=== PATIENT | female | born 1975 | race Caucasian/White ===

== ENCOUNTER 2018-11-17 17:25 | Inpatient (IN) | payer BC ==
[~2018-11-17] VITALS: Ht 157.5 cm; Wt 113.9 kg
[~2018-11-17 17:25] MED LIST: IBUPROFEN 800800 M1 PO; NORCO 5-325 TA1 EACH PO; PERCOCET PO
[2018-11-17 17:29] VITALS: BP 213/127
[2018-11-17] MEDS ORDERED: FLONASE 0.05%50 MCG NASAL (17:36)
[2018-11-17] MEDS ORDERED: SINGULAIR 10 MG10 M1 PO (17:36)
[2018-11-17] MEDS ORDERED: COMBIVENT INH (17:36)
[2018-11-17] MEDS ORDERED: ALBUTEROL2.5 MG/31 INH (17:37)
[2018-11-17 18:46] LABS: ABSOLUTE BASOPHILS 0.1 thou/uL (0.0-0.2); ABSOLUTE EOSINOPHILS 0.1 thou/uL (0.0-0.7); ABSOLUTE LYMPHOCYTES 2.4 thou/uL (0.8-5.3); ABSOLUTE MONOCYTES 0.5 thou/uL (0.0-1.2); ABSOLUTE NEUTROPHILS 5.7 thou/uL (1.6-8.1); BASOPHILS 0.8 %; EOSINOPHILS 0.7 %; HEMATOCRIT 41.8 % (37.0-47.0); LYMPHOCYTES 27.5 %; MCH 29.2 pg (26.0-34.0); MCHC 33.6 g/dL (28.0-37.0); MCV 86.8 fL (80.0-100.0); MONOCYTES 5.6 %; MPV 8.8 fl. (7.2-11.1); NUCLEATED RBCS 0 /100WBC; PLATELET COUNT* 272 thou/uL (150-400); POLYS 65.4 %; RBC 4.81 mil/uL (4.20-5.00); WBC 8.7 thou/uL (4.0-11.0)
[2018-11-17 18:56] LABS: BE -1.9 mmol/L (-2 to +3); PCO2 21.2 mmHg (35.0-45.0); pH 7.548 (7.340-7.450)
[2018-11-17 18:56] LABS: ANION GAP 12 mmol/L (7-16); BUN 22 mg/dL (7-18); CHLORIDE 105 mmol/L (98-107); CO2 22 mmol/L (21-32); CREATININE 1.1 mg/dL (0.6-1.3); GLUCOSE 110 mg/dL (70-99); POTASSIUM 3.4 mmol/L (3.5-5.1); SODIUM 139 mmol/L (136-145)
[2018-11-17 19:01] LABS: PO2 124.1 mmHg (75.0-100.0)
[2018-11-17 19:10] LABS: ALBUMIN 3.9 g/dL (3.4-5.0); ALKALINE PHOSPHATASE 101 U/L (46-116); SGOT 18 U/L (15-37); SGPT 25 U/L (30-65); TOTAL BILIRUBIN 0.5 mg/dL (<0.1-1.0); TOTAL PROTEIN 7.7 g/dL (6.4-8.2); TROPONIN-I LEVEL <0.06 ng/mL (<0.06)
[2018-11-17 21:26] LABS: BE -4.2 mmol/L (-2 to +3); PCO2 26.2 mmHg (35.0-45.0); PO2 61.1 mmHg (75.0-100.0); pH 7.456 (7.340-7.450)
[2018-11-17 21:33] VITALS: BP 177/95
[2018-11-17 21:48] LABS: INFLUENZA A ANTIGEN None Detected (None Detect); INFLUENZA B ANTIGEN None Detected (None Detect)
[2018-11-17] MEDS ORDERED: EXCEDRIN MIGRA1 EAC1 PO (22:07)
[2018-11-17 22:30] VITALS: BP 161/82
[2018-11-18] VITALS: BP 156/86
[2018-11-18 04:00] VITALS: BP 191/89
[2018-11-18 05:29] LABS: HEMATOCRIT 41.4 % (37.0-47.0); HEMOGLOBIN 13.9 gm/dL (12.0-15.0); MCH 29.3 pg (26.0-34.0); MCHC 33.7 g/dL (28.0-37.0); MCV 87.1 fL (80.0-100.0); MPV 9.4 fl. (7.2-11.1); RBC 4.75 mil/uL (4.20-5.00); RDW-CV 14.2 % (10.5-14.5); WBC 8.7 thou/uL (4.0-11.0)
--- NOTE | 2018-11-18 05:30 | NUR ---
RECEIVED REPORT FROM ED RN. PT TRANSFERRED TO 227. PT A&OX4. VSS. PHYSICAL ASSESSMENT COMPLETED AND CHARTED. PT ON O2 AT 2L NC WITH 96% O2 SAT. PT TRACING ST/PVC ON TELE. PT UP WITH 1 ASSIST TO RESTROOM. PT C/O OF MIGRAINE- DR KINSEY INFORMED WITH NEW ORDER. CALL LIGHT WITHIN REACH.
[2018-11-18 05:47] LABS: ALBUMIN 3.6 g/dL (3.4-5.0); CALCIUM 8.4 mg/dL (8.5-10.1); POTASSIUM 3.5 mmol/L (3.5-5.1); TOTAL BILIRUBIN 0.3 mg/dL (<0.1-1.0); TOTAL PROTEIN 7.5 g/dL (6.4-8.2)
[2018-11-18 08:09] VITALS: BP 190/80
--- NOTE | 2018-11-18 09:03 | EKG ---
[place] [address] ELECTROCARDIOGRAM REPORT Name: MICKEYLEO MCKEON Room: [place] [address] ADM IN ..#: [id number] Admission: 11/17/18 Attend Phys: Viet Avalos MD Discharge: Date of : 77 Report #: [id number] THIS REPORT FOR: //name// [facility] ED Test Date: 2018-11-17 Test Time: 18:20:12 Pat Name: ELO AREVALO Department: Room: [facility] Gender: F Corrections Counselor: Emeka SOSA : 1975 Requested By: Lu Miles Order Number: [id number] MD: Vishal Jarvis Measurements Intervals [place] Rate: 128 P: 63 NJ: 146 QRS: 85 QRSD: 84 T: 0 QT: 311 QTc: 454 Interpretive Statements Sinus tachycardia Probable left atrial enlargement Baseline wander in lead(s) V4,V5 No previous ECG available for comparison Electronically Signed On 11-18-2018 9:02:58 [employer] WORKER by Vishal Jarvis [email or web address] <ELECTRONICALLY SIGNED> By: Vishal Jarvis MD, [facility] [id number] Vishal Jarvis MD, [facility] /EPI
--- NOTE | 2018-11-18 10:32 | NUR ---
MET WITH PT AND HER FRIEND/ABDIEL TO DISCUSS HOME SITUATION/DC PLANNING. PT LIVES WITH SPOUSE AND CHILDREN. 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 USES NEBULIZER AND INHALERS, HAS HX OF ASTHMA SINCE AGE 13. PT STATES 'I NEVER WHEEZE AND MY BP ISN'T THAT HIGH EVEN DURING AN ASTHMA ATTACK' PT VOICING FRUSTRATION BEING HOSPITALIZED AND ISSUES SURROUNDING HER DX. SUPPORT OFFERED, REASSURED HER THAT DR WOULD BE IN SOON TO DISCUSS. PT DENIES NEEDS AT THIS TIME. WILL FOLLOW
[2018-11-18 12:00] VITALS: BP 150/98
--- NOTE | 2018-11-18 15:00 | 2DMMODE ---
[place] [address] 2 D/M-MODE ECHOCARDIOGRAM Name: MICKEYELO Room: [facility]1 ADM IN [facility]#: [id number] Admission: 11/17/18 Attend Phys: Viet Avalos, Discharge: Date of : 77 Date of Service: 11/18/18 1500 Report #: [id number] THIS REPORT FOR: //name// APPROVED REPORT Study performed: 11/18/2018 14:14:13 EXAM: Comprehensive 2D, Doppler, and color-flow Echocardiogram Patient Location: In-Patient Room #: [facility] Status: routine BSA: 2.08 HR: 104 bpm BP: 172/89 mmHg Rhythm: NSR Other Information Study Quality: Good Indications Dyspnea Hypertension/HDD 2D Dimensions IVSd: 12.09 (7-11mm) LVOT Diam: 21.42 (18-24mm) LVDd: 38.52 mm PWd: 11.10 (7-11mm) Ascending Ao: 28.90 (22-36mm) LVDs: 23.25 (25-40mm) Aortic Root: 34.20 mm Volumes Left Atrial Volume (Systole) LA ESV Index: 23.00 mL/m2 Aortic Valve AoV Peak Luis Alberto.: 1.38 m/s AO Peak Gr.: 7.56 mmHg LVOT Max P.71 mmHg AO Mean Gr.: 4.21 mmHg LVOT Mean P.26 mmHg LVOT Max V: 1.09 m/s AO V2 VTI: 24.37 cm LVOT Mean V: 0.69 m/s MUSTAPHA (VTI): 3.20 cm2 LVOT V1 VTI: 21.61 cm Mitral Valve E/A Ratio: 0.71 MV Decel. Time: 74.50 ms MV E Max Luis Alberto.: 0.70 m/[place] [address] 2 D/M-MODE ECHOCARDIOGRAM Name: HERIBERTO AREVALORA Rodriguez Room: [address] IN [facility].#: [id number] Admission: 11/17/18 Attend Phys: Viet Avalos, Discharge: Date of : 77 Date of Service: 11/18/18 1500 Report #: [id number] MV PHT: 21.61 ms MVA (PHT): 10.18 cm2 TDI E/Lateral E': 7.78 E/Medial E': 7.00 Medial E' Luis Alberto.: 0.10 m/s Lateral E' Luis Alberto.: 0.09 m/s Pulmonary Valve PV Peak Luis Alberto.: 1.22 m/s PV Peak Gr.: 5.98 mmHg Left Ventricle The left ventricle is normal size. There is normal LV segmental wall motion. Mild concentric left ventricular hypertrophy. Left ventricular systolic function is normal. The left ventricular ejection fraction is within the normal range. LVEF is 60-65%. Right Ventricle The right ventricle is normal size. The right ventricular systolic function is normal. Atria The left atrium size is normal. The right atrium size is normal. Aortic Valve The aortic valve is normal in structure. No aortic regurgitation is present. There is no aortic valvular stenosis. Mitral Valve The mitral valve is normal in structure. There is no mitral valve regurgitation noted. No evidence of mitral valve stenosis. Tricuspid Valve The tricuspid valve is normal in structure. Unable to assess PA pressure. Trace tricuspid regurgitation. Pulmonic Valve The pulmonary valve is normal in structure. There is no pulmonic valvular regurgitation[place] [address] 2 D/M-MODE ECHOCARDIOGRAM Name: HERIBERTO AREVALORA Rodriguez Room: [address] IN .R.#: [id number] Admission: 11/17/18 Attend Phys: Viet Avalos, Discharge: Date of : 77 Date of Service: 11/18/[address] [facility] Report #: [id number] The aortic root is normal in size. IVC is normal in size and collapses >50% with inspiration. Pericardium There is no pericardial effusion. <Conclusion> The left ventricle is normal size. Mild concentric left ventricular hypertrophy. Left ventricular systolic function is normal. The left ventricular ejection fraction is within the normal range. LVEF is 60-65%. The right ventricle is normal size. The left atrium size is normal. The aortic valve is normal in structure. The mitral valve is normal in structure. The tricuspid valve is normal in structure. IVC is normal in size and collapses >50% with inspiration. There is no pericardial effusion. There is normal LV segmental wall motion. <ELECTRONICALLY SIGNED> By: Eric Bello MD, FACC 11/18/18 1500 1500 1500 Eric Bello MD, FACC /INF
[2018-11-18 16:00] VITALS: BP 150/110
--- NOTE | 2018-11-18 17:37 | NUR ---
ASSUMED PT CARE AT 0730, FULL ASSESMENT DONE CHARTED. PT VERY DROWSY THIS AM, C/O FEELING LIKE HER HANDS, FEET AND FACE ARE TINGLING, PT STATES SHE STARTED FEELING BETTER LATE MORNING, PT THINKS THE MEDICINE SHE HAD IN ER MADE HER FEEL THIS WAY, HYDRALAZINE WAS ADDED TO ALLERGY LIST. PT C/O MIGRAINE, MEDS GIVEN PER DEC. PT UP AD DAVID, ST ON THE MONITOR. BP ELEVATED BUT RESPONDING TO NEW MEDS THIS AFTERNOON. REVIEWED PLAN OF CARE WITH PT, QUESTIONS ANSWERED. WILL CONTINUE WITH PLAN OF CARE
[2018-11-18 19:15] VITALS: BP 152/78
--- NOTE | 2018-11-18 23:47 | NUR ---
PT ASSESSMENT COMPLETE, REFER TO COMPUTER CHARTING FOR FURTHER DETAILS. PT C/O HEADACHE, SINUS PRESSURE, AND JOINT PAIN. PRN TRAMADOL AND PERCOCET GIVEN. NEW ORDERS FOR CLARITIN D RECEIVED. IVF INFUSING ORDERED. PT YOSHI ANY CP, OR SOA AT REST. PT ALSO DENIES N/V AND HAS NOT YET HAD ANY STOOL THIS SHIFT. VSS. TRACING SR ON MONITOR. HOURLY ROUNDING FOR SAFETY, CLWR.
--- NOTE | 2018-11-18 23:50 | NUR ---
PT ASSESSMENT COMPLETE, REFER TO COMPUTER CHARTING FOR FURTHER DETAIL. TRACING ST ON MONITOR. PT DENIES ANY PAIN, CP, N/V/D. PT IS ON ROOM AIR WITHOUT ANY S/S OF DISTRESS. FAMILY AT BEDSIDE VISITING. VSS. HOURLY ROUNDING FOR SAFETY, CLWR
[2018-11-19] VITALS (7 sets, daily range): BP systolic 128–190; BP diastolic 60–100
[2018-11-19 04:47] LABS: HEMATOCRIT 40.1 % (37.0-47.0); MCH 28.5 pg (26.0-34.0); MCHC 32.4 g/dL (28.0-37.0); MPV 9.3 fl. (7.2-11.1); RBC 4.56 mil/uL (4.20-5.00); RDW-CV 15.1 % (10.5-14.5); WBC 17.5 thou/uL (4.0-11.0)
[2018-11-19 05:19] LABS: CALCIUM 8.8 mg/dL (8.5-10.1); CREATININE 1.1 mg/dL (0.6-1.3); MAGNESIUM 1.9 mg/dL (1.8-2.4); POTASSIUM 3.9 mmol/L (3.5-5.1)
--- NOTE | 2018-11-19 06:13 | NUR ---
PT HAS BEEN UP FOR MOST OF THIS SHIFT. PT WOULD HAVE "COUGHING FITS" AFTER BREATHING TX. VSS. TRACING ST ON MONITOR. HOURLY ROUNDING FOR SAFETY. CLWR.
[2018-11-19] MEDS ORDERED: RESTORIL15 M1 PO (12:42)
[2018-11-19] MEDS ORDERED: DIGOXIN250 MCG PO (12:44)
--- NOTE | 2018-11-19 12:46 | CON ---
[address] [address] CONSULTATION Name: ELO AREVALO Jennifer Room: [place] [address] ADM IN M.R.#: [id number] Admission: 11/17/18 Attend Phys: Viet Avalos MD Discharge: Date of : 77 Report #: [id number] THIS REPORT FOR: //name// CC: Viet Haskins REQUESTING PHYSICIAN: Liss Vicente MD REASON FOR CONSULTATION: Cough, history of asthma. DISCUSSION: The patient is a 43-year-old nonsmoking woman who has a history of asthma dating back to when she was 13. She notes she was having recurrent episodes of "croup," diagnosis of asthma was made at that time. Cold air and smoke were her main triggers. She had actually done relatively well as far as her asthma is concerned. When she would have issues, was manifested primarily as a cough. She does have a LOT OF MEDICATION INTOLERANCES. She has not seen a calculus tutor previously. At the time of her diagnosis, she did have a battery of allergy testing done and no allergens were found at that time, which did trigger problems. She is actually and relatively well being managed on daily montelukast. Also, has a nebulizer at home with albuterol. Also, Combivent inhaler. She has not had any hospitalizations for her asthma. She has had several ED visits in the past. She has not had any ENT evaluations. About 3 weeks ago, she noted with the onset of the cold weather, she started having trouble. Again is primarily a cough. Really not bring up any sputum. Has not felt necessarily full in her sinuses. Minimal postnasal drip. She does not have any reflux type symptoms. She did see a nurse practitioner in her family physician's office. Was given a short course of steroids, by her description was a Medrol Mike. It did help, but did not alleviate her symptoms completely. She did call back. They had not wanted to prescribe additional steroids. On her own, she did make an appointment, saw Dr. Hill, the altitude chamber technician, yesterday. Apparently, however, he was concerned with the way she looked, sent her to the Emergency Department. Was noted also that she was fairly hypertensive. There was mention that she had a low O2 level as well; however, I do not see where that was actually documented, what it was in his office. She was seen in the Emergency Department. Did have a chest x-ray done, which was negative for any acute findings. O2 saturations were adequate. She did have blood gases done. Given her symptoms, she was admitted. Has been started on IV steroids and is receiving DuoNeb q.i.d. She is feeling a little better today. She is still having a fair amount of what she calls chest tightness. No actual pain. Not having any fevers at home. No problems with lower extremity edema. She has no prior history of thromboembolic disease. As far as other medications she used to try to control her asthma in the past, though has not been on much else. She notes at one point, she was given Symbicort. It gave [facility] [address] [place] [address] CONSULTATION Name: ELO AREVALO Room: [address] IN M.R.#: [id number] Admission: 11/17/18 Attend Phys: Viet Avalos MD Discharge: Date of : 77 Report #: [id number] her "out of body experience." Dr. Haskins had her stop that. She does not believe that she has ever been on any straight inhaled steroids in the past. She does not get a flu shot. PAST MEDICAL HISTORY: Remarkable for osteogenesis imperfecta. Her mother has had as well. She has had some fractures, are related to that in the past. Questionable history of hypertension. Apparently does tend to have higher pressures when she is in her physician's office. However, is not on any regular medications. At home, she actually becomes hypotensive. She has had prior closed right ankle surgery, has had some falls and injuries in the past. HOME MEDICATIONS: Have been the montelukast as noted, Combivent, fluticasone nasal spray, albuterol nebulizer (she notes she is out of that at this time). SOCIAL HISTORY: She is . 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 She is a lifelong nonsmoker. Her father did smoke, though he left home when she was 7. FAMILY HISTORY: Positive for asthma in her mother and another relative. Her mother has osteogenesis imperfecta as well. No history of thromboembolic disease. No other lung problems in her family. REVIEW OF SYSTEMS: A 12-point ROS was done. Note positives above. She denies any dysphagia, indigestion, heartburn. No difficulty swallowing. Not having lot of fullness in her upper airway. She does have a dry cough. Friend noted in the room. At times, the pitch of her voice will change when she is having more trouble with her asthma. Has the chest tightness as noted. She has not had any nausea, vomiting, diarrhea. No lower extremity edema. No recent falls. No syncopal episodes. No palpitations. She does note she may have untoward reactions with medications. PHYSICAL EXAMINATION: APPEARANCE: An obese woman. Resting in bed. Has O2 running via nasal cannula. She is alert, cooperative, able to speak in full sentences. Does have a fairly frequent harsh cough. No sputum was expectorated. HEENT: Head is normocephalic. Sclerae nonicteric. Mucous membranes are moist. NECK: Negative for adenopathy. No JVD noted. HEART: Regular rate, though tachycardic. No S3 is heard. Currently, is 124 beats per minute. LUNGS: Reveal breath sounds to be diminished. Appears to have somewhat prolonged expiratory phase. She is not taking a full deep breath as it does trigger a cough. No wheezing is heard. Excursion is equal. No subcutaneous emphysema is noted. ABDOMEN: Obese, but soft. Does not appear to have any hepatosplenomegaly noted. EXTREMITIES: Negative for edema. She has no clubbing. Scant varicosities are noted. No calf tenderness. She has no clubbing. [place] [address] CONSULTATION Name: ELO AREVALO Jennifer Room: [address] IN [facility]#: [id number] Admission: 11/17/18 Attend Phys: Viet Avalos MD Discharge: Date of : 77 Report #: [id number] LABORATORY AND X-RAY FINDINGS: She had a portable chest film done in the ED. It was negative for any acute findings. Arterial blood gases were done. Her initial blood gas, she had a pH of 7.55, pCO2 of 21, pO2 of 124, bicarbonate of 18 with a saturation of 98%. Follow up blood gases, pH 7.46, pCO2 of 26, pO2 of 61, bicarbonate of 18. On her chemistry, bicarbonate was 22 and repeat was 21, BUN of 15, creatinine of 1.0, potassium is 3.5. Glucose elevated this morning to 206. Transaminases normal. Lactic acid was 1.2. White blood cell count 8700, hemoglobin 13.9, hematocrit of 41.4. Eosinophils were not elevated. Influenza screen was negative. IMPRESSION: 1. Complaints of increasing shortness of breath and cough for the last 3 weeks. By history, she has a cough variant asthma. Still having a lot of issues. 2. Mild metabolic acidosis. This could be from her asthma as well. 3. Mild hypoxemia. Does have an elevated based on her blood gases. 4. Obesity. 5. History of osteogenesis imperfecta. It is not clear if that may be having a role in the issues that she is having. RECOMMENDATIONS: 1. Continue with IV steroids. 2. Increase her neb treatments to every 4 hours around the clock. 3. Continue montelukast while she is here. 4. Agree with CT scan of her sinuses, which has already been requested. 5. We will also obtain a CT scan of her chest as well with contrast. Rule out PE given the mild hypoxemia, metabolic acidosis and chest pressure that she has. Also look for evidence of any tracheobronchomalacia. 6. May also empirically need to be on a PPI to cover for reflux if that is contributor to her cough. 7. She is hesitant to take any additional or new medications given the problem she has had in the past. However, probably would be reasonable to try a straight inhaled steroid at the time she is discharged to try and improve control of her asthma in addition to the montelukast. 8. Given the length of time it has been since she had allergy testing done, when she is stable, reassessing with a formal allergy testing may be worthwhile as well. <ELECTRONICALLY SIGNED> By: Govind Oconnell MD 11/19/18 1246 [id number] [id number] Youssef MD /nt
[2018-11-19] MEDS ORDERED: MEDROLDOSEPACK PO (12:49)
--- NOTE | 2018-11-19 17:29 | NUR ---
PT PROGRESSING TOWARDS GOALS THIS SHIFT. STOPPED TELEMETRY. PT MAINTAINING OXYGEN SATURATION ON RA. BLOOD PRESSURE MANAGED WITH PRESCRIBED MEDICATIONS. NO OTHER CONCERNS AT THIS TIME. CLWR. WCTM.
--- NOTE | 2018-11-19 20:00 | NUR ---
RECEIVED REPORT AND ASSUMED CARE OF PT, ASSESSMENT COMPLETED. PT SOB WITH TALKING OR ACTIVITY. 96% ON RA. BP TAKEN MANUALLY PER PT REQUEST, ELEVATED AT 150/100. WILL CONT TO MONITOR AND ASSIST NEEDED.
[2018-11-20 04:00] VITALS: BP 160/78
--- NOTE | 2018-11-20 05:55 | NUR ---
SLEPT WELL. BP IMPROVED AFTER CLONIDINE GIVEN. CONT TO BE SOB WITH ACTIVITY. ASSESSMENT UNCHANGED. HS GOALS OF REST AND SAFETY ACHIEVED. HOURLY ROUNDING OBSERVED.
[2018-11-20 07:54] VITALS: BP 158/98
[2018-11-20 16:00] VITALS: BP 180/98
--- NOTE | 2018-11-20 19:23 | NUR ---
PT AMBULATED HALLS WELL. DR TALLEY TO START NEW BP MEDS TONIGHT. TREAT ELEVATED BP WITH CLONODINE 0.1MG PO. PT STATES SHE IS READY FOR DISCHARGE IN THE AM.
[2018-11-20 20:00] VITALS: BP 150/90
[2018-11-21] VITALS: BP 144/90
[2018-11-21 05:29] LABS: HEMATOCRIT 39.6 % (37.0-47.0); HEMOGLOBIN 13.1 gm/dL (12.0-15.0); MCH 28.9 pg (26.0-34.0); MCHC 33.1 g/dL (28.0-37.0); MCV 87.5 fL (80.0-100.0); MPV 9.3 fl. (7.2-11.1); RBC 4.53 mil/uL (4.20-5.00); RDW-CV 15.1 % (10.5-14.5); WBC 12.3 thou/uL (4.0-11.0)
[2018-11-21 06:23] LABS: CREATININE 0.9 mg/dL (0.6-1.3); MAGNESIUM 2.4 mg/dL (1.8-2.4); POTASSIUM 3.7 mmol/L (3.5-5.1)
--- NOTE | 2018-11-21 06:44 | NUR ---
ASSUMED CARE OF PT AFTER REPORT AT 1930. PT A&OX4. VSS. PHYSICAL ASSESSMENT COMPLETED AND CHARTED. PT ON RA WITH 96% O2 SAT. PT ON MEDSURG STATUS. PT DENIES ANY PAIN OR DISCOMFORT. PT RESTED WELL ON BED. CALL LIGHT WITHNI REACH.BED IN LOW POSITION.
[2018-11-21 08:00] VITALS: BP 160/80
--- NOTE | 2018-11-21 12:03 | NUR ---
ASSUMED PT CARE AT 0730, FULL ASSESMENT DONE CHARTED. PT A/O X4, DENIES PAIN, M/S STATUS, VSS, 98% RA, NON PRODUCTIVE COUGH. PT HOPING TO GO HOME TODAY. DISCUSSED PRIMARY DR'S WITH PT, SHE IS WANTING TO CHANGE DR. PT UP AD DAVID, USES CALL LIGHT APPROPRIALTY. WILL CONTINUE TO MONITOR.
--- NOTE | 2018-11-21 16:33 | NUR ---
PT TRANSFERRED TO UNIT. PT ALERT AND ORIENTED. ON ROOM AIR. BLOOD SUGAR TAKEN 211. PT UP AD DAVID. BLOOD PRESSURE TAKEN MANUALLY, 175/100, HEART RATE 97. IV LT AC SALINE LOCKED. FALL RISK PRECAUTIONS IN PLACE. HOURLY ROUNDING COMPLETED. WILL CONTINUE TO MONITOR. DR. PEARSON NOTIFIED OF HIGH BLOOD PRESSURE.
--- NOTE | 2018-11-21 17:21 | NUR ---
PT REMAINED ALERT AND ORIENTED. PT BLOOD PRESSURE WAS ELEVATE AT 175/100, DR. PEARSON NOTIFIED. CLONIDINE GIVEN ORDERED TO LOWER BLOOD PRESSURE. PT REFUSED ANY INSULIN. FALL RISK PRECAUTIONS IN PLACE. HOURLY ROUNDING COMPLETED. WILL CONTINUE TO MONITOR.
[2018-11-21 20:00] VITALS: BP 170/90
[2018-11-22 04:55] LABS: CALCIUM 9.2 mg/dL (8.5-10.1); POTASSIUM 3.6 mmol/L (3.5-5.1)
[2018-11-22 06:30] VITALS: BP 160/90
--- NOTE | 2018-11-22 06:53 | NUR ---
PATIENT HAS RESTED WELL THROUGHOUT THE NIGHT. PATIENT VSS, ALTHOUGH BP STILL ELEVATED. PATIENT STATED THAT SHE DID NOT WANT ANYMORE CLONIDINE FOR HER BLOOD PRESSURE AND SHE HAS AN ALLERGY TO HYDRALAZINE. PATIENT STATES THAT THE CLONIDINE MAKES HER VERY SLEEPY AND SHE FEELS FUNNY. NO C/O PAIN. PATIENT RESTING IN BED THIS AM. PATIENT INSTRUCTED TO USE CALL LIGHT WHEN NEEDING ASSISTANCE. HOURLY ROUNDS MADE. WILL CONTINUE WITH PLAN OF CARE AND NURSING TO MONITOR.
[2018-11-22 08:00] VITALS: BP 129/61
[2018-11-22] MEDS ORDERED: CHLORTHALIDONE25 MG PO (11:12)
[2018-11-22] MEDS ORDERED: ALBUTEROL2.5 MG/31 INH (11:12)
[2018-11-22] MEDS ORDERED: COZAAR 50 MG TA50 M1 PO (11:12)
[2018-11-22] MEDS ORDERED: COMBIVENT INH (11:13)
[2018-11-22] MEDS ORDERED: PEPCID20 MG PO (11:14)
[2018-11-22] MEDS ORDERED: PREDNISONE 10 M10 MG PO (11:15)
--- NOTE | 2018-11-22 11:17 | NUR ---
PT REFUSES CHLORTHALIDONE. STATES IT MAKES HER DIZZY AND TIRED
[2018-11-22 11:21] VITALS: BP 129/61
[2018-11-22] MEDS ORDERED: CEFDINIR300 MG PO (11:26)
== END 2018-11-22 12:37 | disposition home or self-care (01) | DRG 189 ==
LOC: M.ERS 17:25 → M.2W 20:33 → M.TBA-ER 20:33 → M.2W 21:34 → M.ORTHSURG 11-21 16:21
PROVIDERS: Family Medicine; Internal Medicine; Nurse Practitioner Family; ADMIT Internal Medicine
DX: J96.01 Acute respiratory failure with hypoxia (principal); J45.41 Moderate persistent asthma with (acute) exacerbation; Z68.42 Body mass index [BMI] 45.0-49.9, adult; E87.2 Acidosis; I16.1 Hypertensive emergency; Q78.0 Osteogenesis imperfecta; I10 Essential (primary) hypertension; G43.909 Migraine, unspecified, not intractable, without status migrainosus; E66.9 Obesity, unspecified; R73.9 Hyperglycemia, unspecified; T38.0X5A Adverse effect of glucocorticoids and synthetic analogues, initial encounter; Y92.89 Other specified places as the place of occurrence of the external cause; Z79.51 Long term (current) use of inhaled steroids; Z79.82 Long term (current) use of aspirin; Z79.899 Other long term (current) drug therapy; Z88.8 Allergy status to other drugs, medicaments and biological substances; Z82.5 Family history of asthma and other chronic lower respiratory diseases

== ENCOUNTER 2021-10-04 20:30 | Inpatient (IN) | payer BC ==
[~2021-10-04] VITALS: Ht 157.5 cm; Wt 99.8 kg
[~2021-10-04 20:30] MED LIST changes: +ALBUTEROL2.5 MG/31 INH; +CEFDINIR300 MG PO; +CHLORTHALIDONE25 MG PO; +COMBIVENT INH; +COZAAR 50 MG TA50 M1 PO; +DIGOXIN250 MCG PO; +EXCEDRIN MIGRA1 EAC1 PO; +FLONASE 0.05%50 MCG NASAL; +MEDROLDOSEPACK PO; +PEPCID20 MG PO; +PREDNISONE 10 M10 MG PO; +RESTORIL15 M1 PO; +SINGULAIR 10 MG10 M1 PO
[2021-10-04 21:00] VITALS: BP 152/96
[2021-10-04 21:39] LABS: INFLUENZA A ANTIGEN Negative (Negative); INFLUENZA B ANTIGEN Negative (Negative)
[2021-10-04 22:45] LABS: HEMATOCRIT 40.6 % (37.0-47.0); MCH 29.6 pg (26.0-34.0); MCHC 34.4 g/dL (28.0-37.0); MPV 9.1 fl. (7.2-11.1); NUCLEATED RBCS 0 /100WBC; PLATELET COUNT* 189 thou/uL (150-400); RBC 4.72 mil/uL (4.20-5.00); RDW-CV 14.2 % (10.5-14.5); WBC 4.5 thou/uL (4.0-11.0)
[2021-10-04 22:46] LABS: CALCIUM 8.3 mg/dL (8.5-10.1); CREATININE 1.1 mg/dL (0.6-1.3); POTASSIUM 3.2 mmol/L (3.5-5.1)
[2021-10-04 22:50] LABS: ALBUMIN 3.6 g/dL (3.4-5.0); TOTAL BILIRUBIN 0.6 mg/dL (<0.1-1.0); TOTAL PROTEIN 7.8 g/dL (6.4-8.2)
[2021-10-04 23:49] LABS: ABSOLUTE LYMPHOCYTES 0.6 thou/uL (0.8-5.3); ABSOLUTE MONOCYTES 0.2 thou/uL (0.0-1.2); ABSOLUTE NEUTROPHILS 3.6 thou/uL (1.6-8.1); PLATELET ESTIMATE ADEQUATE
[2021-10-04 23:54] LABS: BE 1.5 mmol/L (-2 to +3); PCO2 34.2 mmHg (35.0-45.0); PO2 78.7 mmHg (75.0-100.0); pH 7.475 (7.340-7.450)
[2021-10-05 03:30] VITALS: BP 128/86
[2021-10-05 08:29] VITALS: BP 126/80
[2021-10-05 11:40] LABS: ABSOLUTE LYMPHOCYTES 0.7 thou/uL (0.8-5.3); MPV 8.6 fl. (7.2-11.1); NUCLEATED RBCS 0 /100WBC; RDW-CV 13.7 % (10.5-14.5)
[2021-10-05 11:42] LABS: ABSOLUTE MONOCYTES 0.2 thou/uL (0.0-1.2); BASOPHILS 0.2 %; HEMATOCRIT 41.1 % (37.0-47.0); HEMOGLOBIN 13.7 gm/dL (12.0-15.0); LYMPHOCYTES 23.5 %; MCH 28.9 pg (26.0-34.0); MCHC 33.3 g/dL (28.0-37.0); MCV 86.6 fL (80.0-100.0); MONOCYTES 6.1 %; PLATELET COUNT* 168 thou/uL (150-400); POLYS 70.2 %; RBC 4.74 mil/uL (4.20-5.00); WBC 2.9 thou/uL (4.0-11.0)
[2021-10-05 11:45] LABS: ALBUMIN 3.1 g/dL (3.4-5.0); CREATININE 0.8 mg/dL (0.6-1.3); MAGNESIUM 2.5 mg/dL (1.8-2.4); TOTAL BILIRUBIN 0.4 mg/dL (<0.1-1.0)
[2021-10-05 11:55] LABS: APTT 29.1 Seconds (25.0-31.3); PROTIME 9.8 Seconds (9.20-11.50)
[2021-10-05 12:47] LABS: ESR (SEDRATE) 52 mm/hr (0-20)
[2021-10-05 12:50] VITALS: BP 137/82
[2021-10-05 18:37] VITALS: BP 141/87
[2021-10-05 22:00] VITALS: BP 136/75
[2021-10-06] VITALS (8 sets, daily range): BP systolic 108–135; BP diastolic 49–77
[2021-10-06 03:23] LABS: HEMATOCRIT 39.8 % (37.0-47.0); HEMOGLOBIN 13.4 gm/dL (12.0-15.0); MCH 29.1 pg (26.0-34.0); MCHC 33.6 g/dL (28.0-37.0); MCV 86.8 fL (80.0-100.0); MPV 8.3 fl. (7.2-11.1); RBC 4.59 mil/uL (4.20-5.00); RDW-CV 13.7 % (10.5-14.5)
[2021-10-06 03:32] LABS: CALCIUM 7.9 mg/dL (8.5-10.1); CREATININE 0.9 mg/dL (0.6-1.3)
[2021-10-06 03:40] LABS: POTASSIUM 2.8 mmol/L (3.5-5.1)
[2021-10-06] MEDS ORDERED: PREDNISONE 10 M10 MG PO (18:57)
[2021-10-06] MEDS ORDERED: LEVOFLOXACIN500 MG PO (18:57)
[2021-10-06] MEDS ORDERED: PROAIR HFA8.5 GM INH (18:57)
== END 2021-10-06 21:09 | disposition home or self-care (01) | DRG 871 ==
LOC: M.ERS 20:30 → M.TBA-ER 23:24
PROVIDERS: Emergency Medicine; Internal Medicine; Physician Assistant; ADMIT Internal Medicine; ATTEND Internal Medicine
PROC: XW13325 Transfusion of Convalescent Plasma (Nonautologous) into Peripheral Vein, Percutaneous Approach, New Technology Group 5 (ICD-10-PCS; principal; 2021-10-05)
PROC: XW033E5 Introduction of Remdesivir Anti-infective into Peripheral Vein, Percutaneous Approach, New Technology Group 5 (ICD-10-PCS; principal; 2021-10-05)
DX: A41.89 Other specified sepsis (principal); U07.1 COVID-19; J12.82 Pneumonia due to coronavirus disease 2019; J45.909 Unspecified asthma, uncomplicated; G43.909 Migraine, unspecified, not intractable, without status migrainosus; Z88.8 Allergy status to other drugs, medicaments and biological substances